=== PATIENT | male | born 1965 | race Hispanic/Latino ===

== ENCOUNTER 2018-10-10 07:15 | Outpatient (CLI) | payer OTHER ==
--- NOTE | 2018-10-10 09:37 | ULT ---
BILATERAL RENAL ULTRASOUND: Date: 10/10/18 COMPARISON: None. HISTORY: Renal calculi, UTI, pelvic pain, hematuria. TECHNIQUE: Multiplanar Pineda scale sonographic imaging of the kidneys and the urinary bladder obtained. FINDINGS: The right kidney measures 11.9 x 5.9 x 5.2 cm. The left kidney measures 13.2 x 6.5 x 5.5 cm. Urinary bladder volume is approximately 85 mL. On the right, there are a few echogenic foci which may represent calculi, measuring 4.0, 3.0, and 5.0 mm, respectively. No solid renal mass on either side. No hydronephrosis on either side. IMPRESSION: Question right renal calculi. POS: BRIDGET
== END 2018-10-10 07:16 | disposition home or self-care (01) ==
LOC: NAV ULT 07:15
PROVIDERS: ATTEND Family Medicine
DX: N30.91 Cystitis, unspecified with hematuria (principal); N21.0 Calculus in bladder
CPT/HCPCS: 76770